=== PATIENT | female | born 1985 | race Caucasian/White ===

== ENCOUNTER → 2016-06-07 | Outpatient (CLI) | payer BC ==
[2016-06-07 11:06] LABS: ESTRADIOL 256.3 PG/ML
== END ==
LOC: M SMT 09:00
PROVIDERS: ATTEND Obstetrics & Gynecology Reproductive Endocrinology
DX: N97.9 Female infertility, unspecified (principal)

== ENCOUNTER → 2016-06-14 | Outpatient (CLI) | payer BC ==
[2016-06-14 10:55] LABS: PROGESTERONE 13.8 NG/ML
== END ==
LOC: M SMT 08:21
PROVIDERS: ATTEND Obstetrics & Gynecology Reproductive Endocrinology
DX: Z32.00 Encounter for pregnancy test, result unknown (principal)

== ENCOUNTER → 2016-07-05 | Outpatient (CLI) | payer BC ==
[2016-07-05 10:28] LABS: PROGESTERONE 29.6 NG/ML
== END ==
LOC: M SMT 08:40
PROVIDERS: ATTEND Obstetrics & Gynecology Reproductive Endocrinology
DX: N97.9 Female infertility, unspecified (principal)

== ENCOUNTER → 2016-07-12 | Outpatient (CLI) | payer BC ==
[2016-07-12 20:38] LABS: PROGESTERONE 3.7 NG/ML
== END ==
LOC: M SMT 08:53
PROVIDERS: ATTEND Obstetrics & Gynecology Reproductive Endocrinology
DX: Z32.00 Encounter for pregnancy test, result unknown (principal)

== ENCOUNTER → 2016-07-22 | Outpatient (CLI) | payer BC ==
[2016-07-22 10:09] LABS: ALBUMIN 4.1 GM/DL (3.2-5.2); ALBUMIN/GLOBULIN RATIO 1.24 (1.00-1.93); ALKALINE PHOSPHATASE 65 U/L (45-117); ALT/SGPT 28 U/L (12-78); ANION GAP 6 MEQ/L (8-16); AST/SGOT 13 U/L (15-37); BILIRUBIN,TOTAL 0.6 MG/DL (0.2-1.0); BLOOD UREA NITROGEN 16 MG/DL (7-18); CALCIUM LEVEL 8.9 MG/DL (8.5-10.1); CARBON DIOXIDE LEVEL 27 MEQ/L (21-32); CHLORIDE LEVEL 108 MEQ/L (98-107); CHOLESTEROL LEVEL 244 MG/DL (<200); CREATININE FOR GFR 0.75 MG/DL (0.55-1.02); GLOMERULAR FILTRATION RATE > 60.0 (>60); GLUCOSE, FASTING 96 MG/DL (70-105); POTASSIUM SERUM 4.9 MEQ/L (3.5-5.1); SODIUM LEVEL 141 MEQ/L (136-145); TOTAL PROTEIN 7.4 GM/DL (6.4-8.2); TRIGLYCERIDES LEVEL 86 MG/DL (<150)
== END ==
LOC: M SMT 08:16
PROVIDERS: ATTEND Nurse Practitioner Family
DX: I10 Essential (primary) hypertension (principal)

== ENCOUNTER → 2016-08-02 | Outpatient (CLI) | payer BC ==
[2016-08-02 13:35] LABS: PROGESTERONE 32.9 NG/ML
[2016-08-02 13:36] LABS: ESTRADIOL 129.2 PG/ML
== END ==
LOC: M SMT 11:04
PROVIDERS: ATTEND Obstetrics & Gynecology Reproductive Endocrinology
DX: N97.9 Female infertility, unspecified (principal)

== ENCOUNTER → 2016-08-09 | Outpatient (CLI) | payer BC ==
[2016-08-09 13:32] LABS: PROGESTERONE 9.7 NG/ML
[2016-08-09 13:39] LABS: HCG, SERUM QUANTITATIVE < 1.0 MIU/ML
== END ==
LOC: M SMT 11:24
PROVIDERS: ATTEND Obstetrics & Gynecology Reproductive Endocrinology
DX: Z32.00 Encounter for pregnancy test, result unknown (principal)

== ENCOUNTER → 2016-09-27 | Outpatient (CLI) | payer BC ==
[2016-09-27 16:42] LABS: ESTRADIOL 99.5 PG/ML; PROGESTERONE 21.5 NG/ML
== END ==
LOC: M SMT 13:03
PROVIDERS: ATTEND Obstetrics & Gynecology Reproductive Endocrinology
DX: N97.9 Female infertility, unspecified (principal)

== ENCOUNTER → 2016-10-04 | Outpatient (CLI) | payer BC ==
[2016-10-04 15:03] LABS: HCG, SERUM QUANTITATIVE < 1.0 MIU/ML
[2016-10-04 15:05] LABS: PROGESTERONE 1.1 NG/ML
== END ==
LOC: M SMT 09:14
PROVIDERS: ATTEND Obstetrics & Gynecology Reproductive Endocrinology
DX: Z32.00 Encounter for pregnancy test, result unknown (principal)

== ENCOUNTER → 2016-12-28 | Outpatient (CLI) | payer BC, SELFPAY | LOC: M LAB 17:26 | PROVIDERS: ATTEND Specialist | DX: O20.0 Threatened abortion (principal); Z3A.00 Weeks of gestation of pregnancy not specified ==

== ENCOUNTER → 2016-12-30 | Outpatient (CLI) | payer BC, SELFPAY | LOC: M LAB 16:37 | PROVIDERS: ATTEND Specialist | DX: O20.0 Threatened abortion (principal); Z3A.00 Weeks of gestation of pregnancy not specified ==

== ENCOUNTER → 2017-01-11 | Outpatient (CLI) | payer BC, SELFPAY ==
[2017-01-11 18:09] LABS: BASO # 0.1 10^3/uL (0.0-0.2); BASO % 0.8 % (0.0-1.0); EOS # 0.2 10^3/uL (0.0-0.50); IMMATURE GRANULOCYTE % 0.5 % (0-0); LYMPH % 19.5 % (24.0-44.0); MEAN CORPUSCULAR HEMOGLOBIN 29.2 pg (27.0-33.0); MEAN CORPUSCULAR HGB CONC 34.5 g/dl (32.0-36.5); MEAN CORPUSCULAR VOLUME 84.7 fl (80.0-96.0); MONO # 0.5 10^3/uL (0.0-0.8); NEUTROPHILS # 7.3 10^3/uL (1.8-7.7); NEUTROPHILS % 72.2 % (36.0-66.0); PLATELET COUNT, AUTOMATED 306 10^3/uL (150-450); RED CELL DISTRIBUTION WIDTH 11.9 % (11.5-14.5); WHITE BLOOD COUNT 10.1 10^3/uL (4.0-10.0)
[2017-01-11 18:19] LABS: ADD MORPHOLOGY? NO
[2017-01-13 09:48] LABS: HBsAg Prenatal NEGATIVE (NEGATIVE)
== END ==
LOC: M SMT 14:01
PROVIDERS: ATTEND Advanced Practice Midwife
DX: Z34.81 Encounter for supervision of other normal pregnancy, first trimester (principal)

== ENCOUNTER → 2017-04-12 | Outpatient (CLI) | payer BC | LOC: M RAD 15:39 | DX: Z34.81 Encounter for supervision of other normal pregnancy, first trimester (principal); Z3A.19 19 weeks gestation of pregnancy | CPT/HCPCS: 76811 ==

== ENCOUNTER → 2017-05-09 | Outpatient (CLI) | payer BC | LOC: M RAD 15:29 | DX: Z34.82 Encounter for supervision of other normal pregnancy, second trimester (principal) ==

== ENCOUNTER → 2017-06-08 | Outpatient (CLI) | payer BC ==
[2017-06-08 13:59] LABS: GLUCOSE CHALLENGE TEST 1 HOUR 116 MG/DL (LESS THAN 140)
[2017-06-08 14:03] LABS: HEMATOCRIT 34.5 % (36.0-47.0); HEMOGLOBIN 11.6 g/dl (12.0-16.0); MEAN CORPUSCULAR HEMOGLOBIN 29.4 pg (27.0-33.0); MEAN CORPUSCULAR HGB CONC 33.6 g/dl (32.0-36.5); MEAN CORPUSCULAR VOLUME 87.3 fl (80.0-96.0); PLATELET COUNT, AUTOMATED 261 10^3/uL (150-450); RED BLOOD COUNT 3.95 10^6/uL (4.00-5.40); RED CELL DISTRIBUTION WIDTH 13.6 % (11.5-14.5); WHITE BLOOD COUNT 13.9 10^3/uL (4.0-10.0)
== END ==
LOC: M SMT 08:51
DX: Z34.82 Encounter for supervision of other normal pregnancy, second trimester (principal)
CPT/HCPCS: 82950

== ENCOUNTER → 2017-07-06 | Outpatient (CLI) | payer BC | LOC: M RAD 15:20 | DX: Z36.9 Encounter for antenatal screening, unspecified (principal); O10.013 Pre-existing essential hypertension complicating pregnancy, third trimester; Z3A.31 31 weeks gestation of pregnancy | CPT/HCPCS: 76816 ==

== ENCOUNTER → 2017-08-08 | Outpatient (REF) | payer BC | LOC: M LAB REF 13:07 | DX: Z34.83 Encounter for supervision of other normal pregnancy, third trimester (principal) | CPT/HCPCS: 87081 ==

== ENCOUNTER → 2017-08-15 | Outpatient (CLI) | payer BC | LOC: M RAD 15:21 | DX: O10.013 Pre-existing essential hypertension complicating pregnancy, third trimester (principal); Z3A.37 37 weeks gestation of pregnancy | CPT/HCPCS: 76816 ==

== ENCOUNTER 2017-08-28 07:03 | Inpatient (IN) | payer BC ==
[2017-08-28] MEDS: miSOPROStol 50 MCG 1/2 TAB (S0191) PO (08:56)
[2017-08-28 08:59] LABS: HEMATOCRIT 33.7 % (36.0-47.0); HEMOGLOBIN 11.3 g/dl (12.0-15.5); MEAN CORPUSCULAR HEMOGLOBIN 26.7 pg (27.0-33.0); MEAN CORPUSCULAR HGB CONC 33.5 g/dl (32.0-36.5); MEAN CORPUSCULAR VOLUME 79.7 fl (80.0-96.0); PLATELET COUNT, AUTOMATED 207 10^3/uL (150-450); RED BLOOD COUNT 4.23 10^6/uL (4.00-5.40); WHITE BLOOD COUNT 13.2 10^3/uL (4.0-10.0)
[2017-08-28] MEDS ORDERED: OXYTOCIN 30 UNITS IN 0.9% NaCl 500ML IV BAG (J2590) As Ordered (13:51)
[2017-08-28] MEDS: LR 1,000 ML IV ×3 (14:25→22:01)
[2017-08-28] MEDS: OXYTOCIN DRIP 30 UNITS in APPROPRIATE DILUENT 1 EA IV (14:26)
[2017-08-28] MEDS: PROMETHAZINE INJ 25 MG/ML VIAL (J2550) IV (15:39)
[2017-08-28] MEDS: BUTORPHANOL 2 MG/ML INJ (J0595) IV (15:39)
[2017-08-28] MEDS ORDERED: FENTANYL 2MCG/ML ROPIVACAINE 0.2% IN 0.9% NACL 200ML IVBAG As Ordered (19:20)
[2017-08-28] MEDS ORDERED: diphenhydrAMINE INJ 50MG/ML VIAL (J1200) IV (20:55)
[2017-08-28] MEDS ORDERED: FENTANYL/ROPIVACAINE/NACL BAG 200 ML EPIDURAL (20:55)
[2017-08-28] MEDS ORDERED: ONDANSETRON 4MG/2ML VIAL (J2405) IV (20:55)
[2017-08-28] MEDS ORDERED: NALOXONE INJ 0.4 MG/1 ML VIAL (J2310) IV (20:55)
[2017-08-28] MEDS ORDERED: EPIDURAL COMMENT XX (20:55)
[2017-08-28] MEDS ORDERED: EPIDURAL/PCA KEYS XX (20:55)
[2017-08-28] MEDS ORDERED: LACTATED RINGER'S 1000 ML IV (20:55)
[2017-08-28] MEDS ORDERED: REFRIGERATOR IV KEYS XX (20:55)
[2017-08-28] MEDS ORDERED: ePHEDrine SULFATE 25 MG/5 ML(5MG/ML) SYRINGE As Ordered (21:11)
[2017-08-28] MEDS: ePHEDrine SULFATE 25 MG/5 ML(5MG/ML) SYRINGE IV ×2 (21:19→22:31)
[2017-08-29] MEDS ORDERED: BICITRA 30ML SOLN UDC As Ordered (07:15)
[2017-08-29] MEDS ORDERED: AZITHROMYCIN INJ 500MG VIAL (J0456) As Ordered (07:16)
[2017-08-29] MEDS ORDERED: ceFAZolin 2 GM/D5W 50 ML IV BAG (J0690 PER 500MG) As Ordered (07:17)
[2017-08-29] MEDS: BICITRA 30ML SOLN UDC PO (07:57)
[2017-08-29] MEDS: AZITHROMYCIN INJ 500 MG, VIAL MATE ADAPTER 1 EACH in D5W 250 ML IV (07:58)
[2017-08-29] MEDS ORDERED: LIDOCAINE PRES-FREE 2% 10ML AMP As Ordered ×2 (08:25)
[2017-08-29] MEDS ORDERED: MORPHINE PRES-FREE INJ 10 MG/10 ML VIAL (J2274) As Ordered (08:32)
[2017-08-29] MEDS ORDERED: OXYTOCIN INJ 10 UNITS/ML VIAL (J2590) As Ordered ×8 (08:53→09:45)
[2017-08-29] MEDS ORDERED: fentaNYL 100 MCG/2 ML INJECTION (J3010) As Ordered ×2 (09:11→09:24)
[2017-08-29] MEDS ORDERED: ONDANSETRON 4MG/2ML VIAL (J2405) As Ordered (09:24)
[2017-08-29] MEDS ORDERED: KETAMINE HCL 200 MG/20 ML VIAL As Ordered (09:28)
[2017-08-29] MEDS ORDERED: CHLOROPROCAINE 2 % INJ PRES.FREE 20 ML VIAL (J2400) As Ordered (09:29)
[2017-08-29] MEDS ORDERED: LABETALOL HCL 100 MG/20 ML VIAL As Ordered (09:30)
[2017-08-29] MEDS ORDERED: METHYLERGONOVINE MALEATE 0.2 MG/ML VIAL (J2210) As Ordered (09:32)
[2017-08-29] MEDS ORDERED: MIDAZOLAM INJ 2 MG/2 ML VIAL (J2250) As Ordered (09:35)
[2017-08-29 09:37] LABS: CORD GAS ABE V -5.1; CORD GAS HCO3 V 22.3 MEQ/L; CORD GAS O2 SAT V 42.6 %; CORD GAS PCO2 V 49.7 mmHg; CORD GAS PO2 V 22.2 mmHg; CORD GAS SBC V 18.9 MEQ/L; CORD GAS TCO2 V 23.8 MEQ/L
[2017-08-29] MEDS: METHYLERGONOVINE MALEATE 0.2 MG/ML VIAL (J2210) IM ×2 (09:42→09:46)
[2017-08-29] MEDS ORDERED: MEASLES,MUMPS,RUBELLA VACCINE INJ (MMR-II) (90707) SC (10:30)
[2017-08-29] MEDS ORDERED: ONDANSETRON 4MG/2ML VIAL (J2405) IV ×3 (10:30→12:30)
[2017-08-29] MEDS ORDERED: PERCOCET 5MG/325MG TAB PO ×2 (10:30→12:00)
[2017-08-29] MEDS ORDERED: RHOGAM 300 MCG (1500 IU) INJ (J2790) IM (10:30)
[2017-08-29] MEDS ORDERED: PROMETHAZINE 25 MG TAB PO (10:30)
[2017-08-29] MEDS: LR 1,000 ML IV ×3 (12:00→22:07)
[2017-08-29] MEDS ORDERED: fentaNYL 100 MCG/2 ML INJECTION (J3010) IV (12:00)
[2017-08-29] MEDS ORDERED: NALOXONE INJ 0.4 MG/1 ML VIAL (J2310) IV ×2 (12:30)
[2017-08-29] MEDS ORDERED: METOCLOPRAMIDE INJ 10MG/2ML VIAL (J2765) IV (12:30)
[2017-08-29] MEDS ORDERED: NALBUPHINE HCL 10 MG/ML AMP (J2300) IV (12:30)
[2017-08-29] MEDS ORDERED: KETOROLAC 30 MG/ML VIAL (J1885) As Ordered (13:59)
[2017-08-29] MEDS: KETOROLAC 30 MG/ML VIAL (J1885) IV ×2 (14:19→19:19)
[2017-08-29] MEDS: CETIRIZINE (ZyrTEC) 10 MG TAB PO (14:24)
[2017-08-29] MEDS: METHYLDOPA 250 MG TAB PO ×2 (14:28→21:13)
[2017-08-29] MEDS: buPROPion **SR TABLET** (ZYBAN) 150MG PO ×2 (14:28→21:12)
[2017-08-29] MEDS: DOCUSATE SODIUM 100 MG CAP PO (21:12)
[2017-08-30] MEDS: KETOROLAC 30 MG/ML VIAL (J1885) IV ×2 (01:23→06:40)
[2017-08-30] MEDS: LR 1,000 ML IV (02:21)
[2017-08-30 07:03] LABS: HEMATOCRIT 26.2 % (36.0-47.0); MEAN CORPUSCULAR HEMOGLOBIN 26.6 pg (27.0-33.0); MEAN CORPUSCULAR HGB CONC 32.8 g/dl (32.0-36.5); MEAN CORPUSCULAR VOLUME 81.1 fl (80.0-96.0); PLATELET COUNT, AUTOMATED 207 10^3/uL (150-450); RED BLOOD COUNT 3.23 10^6/uL (4.00-5.40); RED CELL DISTRIBUTION WIDTH 14.3 % (11.5-14.5); WHITE BLOOD COUNT 22.3 10^3/uL (4.0-10.0)
[2017-08-30 07:09] LABS: HEMOGLOBIN 8.6 g/dl (12.0-15.5)
[2017-08-30] MEDS: buPROPion **SR TABLET** (ZYBAN) 150MG PO ×2 (08:53→20:08)
[2017-08-30] MEDS: PERCOCET 5MG/325MG TAB PO ×3 (08:53→18:17)
[2017-08-30] MEDS: DOCUSATE SODIUM 100 MG CAP PO ×2 (08:54→20:09)
[2017-08-30] MEDS: PRENATAL VITAMINS CHEWABLE TABLET PO (08:54)
[2017-08-30] MEDS: METHYLDOPA 250 MG TAB PO ×2 (08:54→20:09)
[2017-08-30] MEDS: CETIRIZINE (ZyrTEC) 10 MG TAB PO (08:55)
[2017-08-30] MEDS ORDERED: PRENATAL VITAMINS CHEWABLE TABLET PO (09:00)
[2017-08-30] MEDS: IBUPROFEN 800 MG TAB PO ×2 (15:40→22:55)
[2017-08-31] MEDS: PERCOCET 5MG/325MG TAB PO ×2 (04:44→09:27)
[2017-08-31] MEDS: IBUPROFEN 800 MG TAB PO (06:06)
[2017-08-31] MEDS: PRENATAL VITAMINS CHEWABLE TABLET PO (09:11)
[2017-08-31] MEDS: DOCUSATE SODIUM 100 MG CAP PO (09:12)
[2017-08-31] MEDS: CETIRIZINE (ZyrTEC) 10 MG TAB PO (09:12)
[2017-08-31] MEDS: METHYLDOPA 250 MG TAB PO (09:12)
[2017-08-31] MEDS: buPROPion **SR TABLET** (ZYBAN) 150MG PO (09:14)
== END 2017-08-31 13:40 | disposition home or self-care (01) | DRG 540 ==
LOC: M LDI 07:03 → M OBS 08-30 00:45
PROVIDERS: Obstetrics & Gynecology
PROC: 10D00Z1 Extraction of Products of Conception, Low, Open Approach (ICD-10-PCS; principal; 2017-08-29 08:38)
DX: O42.02 Full-term premature rupture of membranes, onset of labor within 24 hours of rupture (principal); O10.02 Pre-existing essential hypertension complicating childbirth; Z37.0 Single live birth; Z3A.38 38 weeks gestation of pregnancy; O62.0 Primary inadequate contractions

== ENCOUNTER → 2019-01-15 | Outpatient (REF) | payer BC ==
[~2019-01-15] MED LIST: ACID1TAB10 PO; BUPR10TASR PO; DOCQ100C5 PO; IBUP80TA PO; METHY25TA PO; OXYC1TAB23 PO; PRENTAB9 PO; ZYRT10CA PO
== END ==
LOC: M LABDRAW1 17:19
PROVIDERS: ATTEND Obstetrics & Gynecology
DX: O20.0 Threatened abortion (principal)

== ENCOUNTER → 2019-01-17 | Outpatient (CLI) | payer BC | LOC: M SMT 15:19 | PROVIDERS: ATTEND Obstetrics & Gynecology | DX: O20.0 Threatened abortion (principal) ==

== ENCOUNTER → 2019-02-26 | Outpatient (CLI) | payer BC ==
[2019-02-26 17:57] LABS: BASO % 0.3 % (0.0-1.0); EOS # 0.1 10^3/uL (0.0-0.5); EOS % 0.8 % (0.0-3.0); HEMATOCRIT 41.4 % (36.0-47.0); HEMOGLOBIN 14.1 g/dl (12.0-15.5); LYMPH # 1.4 10^3/uL (1.5-5.0); LYMPH % 11.6 % (24.0-44.0); MEAN CORPUSCULAR HEMOGLOBIN 28.9 pg (27.0-33.0); MEAN CORPUSCULAR HGB CONC 34.1 g/dl (32.0-36.5); MEAN CORPUSCULAR VOLUME 84.8 fl (80.0-96.0); MONO # 0.4 10^3/uL (0.0-0.8); MONO % 3.2 % (0.0-5.0); NEUTROPHILS % 83.7 % (36.0-66.0); PLATELET COUNT, AUTOMATED 285 10^3/uL (150-450); RED BLOOD COUNT 4.88 10^6/uL (4.00-5.40)
[2019-02-26 18:04] LABS: ALT/SGPT 18 U/L (12-78); BILIRUBIN,TOTAL 0.3 MG/DL (0.2-1.0); GLOMERULAR FILTRATION RATE > 60.0 (>60); LDH LACTATE DEHYDROGENASE 171 U/L (84-246); URIC ACID 3.5 MG/DL (2.6-6.0)
[2019-02-26 18:17] LABS: CREATININE,RANDOM URINE 98.3 MG/DL; TOTAL PROTEIN,RANDOM URINE 11.5 MG/DL (0.0-12.0)
[2019-02-26 19:23] LABS: CHLAMYDIA DNA AMPLIFICATION NEGATIVE (NEGATIVE); GC DNA AMPLIFICATION NEGATIVE (NEGATIVE)
[2019-02-27 09:32] LABS: RUBELLA IgG QUALITATIVE IMMUNE (IMMUNE)
[2019-02-27 10:01] LABS: HIV 1&2 SCREEN CENTAUR NEGATIVE (NEGATIVE)
== END ==
LOC: M SMT 15:13
PROVIDERS: ATTEND Advanced Practice Midwife
DX: O09.511 Supervision of elderly primigravida, first trimester (principal); Z3A.09 9 weeks gestation of pregnancy; Z36.89 Encounter for other specified antenatal screening

== ENCOUNTER → 2019-03-12 | Outpatient (REF) | payer BC ==
[2019-03-20 16:09] LABS: HPV HYBRID CAPTURE II Negative (Negative)
== END ==
LOC: M SFHCWAGY 09:48
PROVIDERS: ATTEND Advanced Practice Midwife
DX: Z34.80 Encounter for supervision of other normal pregnancy, unspecified trimester (principal)
CPT/HCPCS: 87086; 87624; G0123

== ENCOUNTER → 2019-04-25 | Outpatient (CLI) | payer BC ==
--- NOTE | 2019-04-26 02:14 | REP ---
Clinical: Anatomical evaluation. Comparison: None . Findings: Examination demonstrates a single live intrauterine in breech presentation. motion is identified by technologist. Placenta is noted posterior and low-lying and grade zero without evidence for placenta previa or abruption. Amniotic fluid volume is normal. Cervix measures 4.3 cm in length and appears closed. No evidence for nuchal cord. Gestational age by current measurements 18 weeks 6 days with JUAN 09/20/2019 . FHR equals 142 beats per minute. BPD 4.4 cm 19.3 weeks HC 15.7 cm 18.6 weeks AC 13.6 cm 19.0 weeks FL 2.9 cm 18.9 weeks HL 2.9 cm 19.4 weeks HC/AC ratio 1.15 Estimated weight 266 grams ( 52 percentile). Anatomical assessment demonstrates normal structures including cranium, choroid plexus, cavum, cerebellum/posterior fossa, facial features, four-chamber heart/ventricular outflow tracts, diaphragm, stomach, cord insertion/three-vessel cord, kidneys/bladder, spine, and extremities. Impression: 1. Single live intrauterine in breech presentation demonstrating appropriate interval growth. 2. Low-lying posterior placenta 10 mm from the closed internal os . 3. Limited evaluation of the lungs. Remainder of the anatomical assessment is complete and normal.
== END ==
LOC: M WHC 14:44
PROVIDERS: ATTEND Advanced Practice Midwife
DX: O09.522 Supervision of elderly multigravida, second trimester (principal); Z3A.18 18 weeks gestation of pregnancy; O32.1XX0 Maternal care for breech presentation, not applicable or unspecified

== ENCOUNTER → 2019-06-03 | Outpatient (CLI) | payer BC ==
--- NOTE | 2019-06-03 09:33 | REP ---
Clinical: Anatomical evaluation. Comparison: 04/25/2019 . Findings: Examination demonstrates a single live intrauterine in variable presentation. motion is identified by technologist. Placenta is noted posterior and grade I without evidence for placenta previa or abruption. Placenta tip now measures 4.1 cm from the closed internal os. Amniotic fluid volume is normal. Cervix measures 4.1 cm in length and appears closed. No evidence for nuchal cord. Gestational age by LMP 24 weeks 3 days with JUAN 09/20/2019 . Gestational age by current measurements 24 weeks 3 days with JUAN 09/20/2019 . FHR equals 156 beats per minute. Estimated weight 776 grams ( 66 percentile). Anatomical assessment demonstrates normal structures without abnormality. Impression: 1. Single live intrauterine in variable presentation demonstrating appropriate interval growth. No gross abnormalities are identified. 2. Posterior grade 1 placenta with tip 4.1 cm from the closed internal os.
== END ==
LOC: M WHC 08:31
PROVIDERS: ATTEND Advanced Practice Midwife
DX: O34.211 Maternal care for low transverse scar from previous cesarean delivery (principal); Z3A.24 24 weeks gestation of pregnancy

== ENCOUNTER → 2019-06-25 | Outpatient (REF) | payer BC ==
[2019-06-25 11:53] LABS: HEMATOCRIT 36.6 % (36.0-47.0); HEMOGLOBIN 12.2 g/dl (12.0-15.5); MEAN CORPUSCULAR HEMOGLOBIN 29.4 pg (27.0-33.0); MEAN CORPUSCULAR HGB CONC 33.3 g/dl (32.0-36.5); MEAN CORPUSCULAR VOLUME 88.2 fl (80.0-96.0); PLATELET COUNT, AUTOMATED 237 10^3/uL (150-450); RED BLOOD COUNT 4.15 10^6/uL (4.00-5.40); WHITE BLOOD COUNT 11.2 10^3/uL (4.0-10.0)
== END ==
LOC: M PLALAB 08:08
PROVIDERS: ATTEND Advanced Practice Midwife
DX: O34.211 Maternal care for low transverse scar from previous cesarean delivery (principal)

== ENCOUNTER → 2019-07-04 | Outpatient (CLI) | payer BC | LOC: M LAB 08:01 | PROVIDERS: ATTEND Advanced Practice Midwife | DX: O09.523 Supervision of elderly multigravida, third trimester (principal) ==

== ENCOUNTER → 2019-08-15 | Outpatient (REF) | payer BC ==
[2019-08-15 18:12] LABS: HEMATOCRIT 36.4 % (36.0-47.0); HEMOGLOBIN 11.6 g/dl (12.0-15.5); MEAN CORPUSCULAR HEMOGLOBIN 27.4 pg (27.0-33.0); MEAN CORPUSCULAR HGB CONC 31.9 g/dl (32.0-36.5); MEAN CORPUSCULAR VOLUME 85.8 fl (80.0-96.0); PLATELET COUNT, AUTOMATED 210 10^3/uL (150-450); RED BLOOD COUNT 4.24 10^6/uL (4.00-5.40); WHITE BLOOD COUNT 11.6 10^3/uL (4.0-10.0)
[2019-08-15 18:15] LABS: ALT/SGPT 20 U/L (12-78); BILIRUBIN,TOTAL 0.3 MG/DL (0.2-1.0); CREATININE FOR GFR 0.58 MG/DL (0.55-1.30); GLOMERULAR FILTRATION RATE > 60.0 (>60); LDH LACTATE DEHYDROGENASE 193 U/L (84-246); URIC ACID 4.5 MG/DL (2.6-6.0)
[2019-08-15 18:39] LABS: CREATININE,RANDOM URINE 26.5 MG/DL; TOTAL PROTEIN,RANDOM URINE 11.6 MG/DL (0.0-12.0)
[2019-08-16 09:34] LABS: HIV 1&2 SCREEN CENTAUR NEGATIVE (NEGATIVE)
== END ==
LOC: M PLALAB 14:37
PROVIDERS: ATTEND Advanced Practice Midwife
DX: O16.3 Unspecified maternal hypertension, third trimester (principal); O34.211 Maternal care for low transverse scar from previous cesarean delivery; Z3A.00 Weeks of gestation of pregnancy not specified

== ENCOUNTER 2019-08-26 11:44 | Inpatient (IN) | payer BC ==
[~2019-08-26] VITALS: Ht 152.4 cm; Wt 65.9 kg
[2019-08-26] VITALS (29 sets, daily range): BP systolic 108–157; BP diastolic 56–92
[2019-08-26] MEDS ORDERED: BUPR50TA PO (12:07)
[2019-08-26] MEDS ORDERED: ASPI81CH33 PO (12:07)
--- NOTE | 2019-08-26 12:32 | HPEPDOC ---
Obstetrical History & Physical General Date of Admission August 26, 2019 at 11:44 Primary Care Physician: CAITLIN PEREZ CNM History of Present Illness Patient is a 33-year-old female who is a at 37.1 weeks gestation with an JUAN of 09/15/19 based off of her LMP and consistent with her first trimester ultrasound. She initiated care in her first trimester at [facility]. Her has been complicated by advanced maternal age, CHTN-which she is not taking any medications for, preeclampsia diagnosed at 35 weeks gestation, a prior section and depression. She desires a TOLAC. She presents for an IOL due to preeclampsia. Chief Complaint: Other (Preeclampsia and prior section) Information Provided By: Patient Age: 33 : 4 Term: 1 Pre-term: 0 Abortions: 2 Livin Care Care: Good Care Dating Final EDC: September 15, 2019 Final EDC by: LMP EGA at Admission: 37.1 Antepartum Course Diagnos(e)s Preeclampsia AMA Previous section-desires TOLAC Height (inches): 60 Pre- weight (lbs.): 110 Admission Weight (lbs.): 145 Change in Weight (lbs.): 35 Past Medical History Past Obstetrical History : Gestation: 39 Type of Delivery: Ceserean section (August 2017) Sex of : Female (weight: 6 lbs 9 oz) Complications: Yes (failure to progress) Past Medical History Medical History Chronic hypertension: no medications since after last delivery Surgical History: section, [place] teeth Family History Significant Family History: Diabetes, Hypertension, Other (Glaucoma) Social History Social history social science instructor Marital Status: Family situation: Spouse/partner home Psychosocial History: No pertinent psych hx * Smoker: non-smoker Alcohol: Denies Abuse Violence Screening Have you been hit/kicked/slapp: No Have you been sexually assault: No Allergies Coded Allergies: No Known Allergies (Unverified , 08/28/17) Medications Scheduled Aspirin (Aspirin) 81 Mg Tab.chew, 81 MG PO DAILY for pain Bupropion HCl (Bupropion HCl) 100 Mg Tablet, 100 MG PO BID Bupropion HCl (Bupropion HCl) 100 Mg Tablet, 50 MG PO BID Cetirizine HCl (Zyrtec Allergy) 10 Mg Cap, 10 MG PO DAILY No.137/Iron/Folic Acd ( Vitamin Tablet) 1 Tab Tab, 1 TAB PO DAILY Physical Examination Physical Examination GENERAL: Alert and oriented times three. BREAST: . ABDOMEN: Gravid and non-tender to touch. FETUS: Is vertex (VTX) by sterile vaginal examination (SVE), fetus is vertex (VTX) by Genaro. HEART RATE: Regular rate and rhythm. LUNGS: Clear to auscultation (CTA). EXTREMITIES: No edema. No clonus. Deep tendon reflexes (DTRs) + 2. Laboratory Data 24H LABS Laboratory Tests 2 08/26/19 12:07: Serology Scanned Report Hepatitis B Testing CBC/BMP Item Value Date Time White Blood Count 11.3 10^3/uL H 08/26/19 1240 Red Blood Count 4.07 10^6/uL 08/26/19 1240 Hemoglobin 11.5 g/dl L 08/26/19 1240 Hematocrit 33.8 % L 08/26/19 1240 Mean Corpuscular Volume 83.0 fl 08/26/19 1240 Mean Corpuscular Hemoglobin 28.3 pg 08/26/19 1240 Mean Corpuscular Hemoglobin Concent 34.0 g/dl 08/26/19 1240 Red Cell Distribution Width 14.3 % 08/26/19 1240 Platelet Count 202 10^3/uL 08/26/19 1240 Item Value Date Time Creatinine 0.61 MG/DL 08/26/19 1247 Glomerular Filtration Rate > 60.0 08/26/19 1247 Uric Acid 4.8 MG/DL 08/26/19 1247 Total Bilirubin 0.3 MG/DL 08/26/19 1247 Aspartate Amino Transf (AST/SGOT) 21 U/L 08/26/19 1247 Alanine Aminotransferase (ALT/SGPT) 24 U/L 08/26/19 1247 Lactate Dehydrogenase 243 U/L 08/26/19 1247 Urine Culture: Other (Klebsiella) Pertinent Laboratoy Data Blood Type: A+ RBC Antibody Screen: Negative HIV: Negative Hepatitis B: Negative Hepatitis C: Negative Rapid Plasma Reagin: Nonreactive Rubella: Immune Chlamydia/Gonorrhea: Negative Group B Streptococcus: Negative Glucose Tolerance Test: 137 Diag/Inter Therapy 3 hr GTT: 82, 144, 134, 95 Vaginal Examination Dilation: 1cm Effacement: 50% Station: -3 Cervical Consistency: Medium Cervical Position: Middle Presentation: Cephalic presentation Position: Vertex (occiput) Assessment Heart Rate (FHR): 150 Variability: Moderate Accelerations: Positive Decelerations: None Tocometer Contractions: Yes Frequency: irregular Multi-drug resistant Organism: No history of MDRO Assessment/Plan Assessment IUP at 37.1 weeks gestation AMA preeclampsia TOLAC Category I FHR tracing GBS negative Plan Admit to L&D. Patient has been counseled on TOLAC. Risks, benefits, and alternatives reviewed. Patient desires to proceed with IOL. Reviewed/counseled on induction of labor. Plan of care collaborated with Dr. López. OOB ad zack. Continuous monitoring. Diet: regular for lunch then switch to clears with the start of IV Pitocin. Group B Streptococcus (GBS) negative. Labs and intravenous (IV) per unit protocol. Counseled on Pitocin, arnett bulb and induction of labor (IOL). Lactated Ringers (LR): 125 mL/hr with IV Pitocin. Anesthesia consult per patient's request. Anesthesia has been notified that patient is in department. Anticipate cervical ripening. C-S as appropriate. CAITLIN PEREZ CNM August 26, 2019 12:32
[2019-08-26] MEDS ORDERED: OXYTOCIN DRIP 30 UNITS in IV 1 EA IV SCH (12:45)
[2019-08-26 13:09] LABS: HEMATOCRIT 33.8 % (36.0-47.0); HEMOGLOBIN 11.5 g/dl (12.0-15.5); MEAN CORPUSCULAR HEMOGLOBIN 28.3 pg (27.0-33.0); PLATELET COUNT, AUTOMATED 202 10^3/uL (150-450); RED BLOOD COUNT 4.07 10^6/uL (4.00-5.40); WHITE BLOOD COUNT 11.3 10^3/uL (4.0-10.0)
[2019-08-26 13:36] LABS: ALT/SGPT 24 U/L (12-78); BILIRUBIN,TOTAL 0.3 MG/DL (0.2-1.0); CREATININE FOR GFR 0.61 MG/DL (0.55-1.30); GLOMERULAR FILTRATION RATE > 60.0 (>60); LDH LACTATE DEHYDROGENASE 243 U/L (84-246); URIC ACID 4.8 MG/DL (2.6-6.0)
[2019-08-26] MEDS: LR 1,000 ML IV SCH ×2 (13:38→20:06)
[2019-08-26] MEDS ORDERED: FENTANYL 2MCG/ML ROPIVACAINE 0.2% IN 0.9% NACL 100ML IVBAG As Ordered ONE (19:59)
--- NOTE | 2019-08-26 20:19 | IPNPDOC ---
Obstetrical Progress Note Date of Service August 26, 2019 Subjective Patient desires an epidural. Offered IV pain medication but declined. She reports relaxation between contractions. Objective Vital Signs Date Time Temp Pulse Resp B/P (MAP) Pulse Ox O2 Delivery O2 Flow Rate FiO2 08/26/19 19:11 97.8 109 130/88 (102) 18 Assessment Heart Rate (FHR): 150 Variability: Moderate Accelerations: Positive Decelerations: None Heart Rate Tracing: Category I Tocometer Contractions: Yes Frequency: regular, other (every 2 to 3 minutes) Strength: palpated as moderate Assessment and Plan Age: 33 EGA at Admission: 37.1 Status: Reassuring Group B Streptococcus: Negative Additional Comments Prince bulb still in place. Will check for position and if still in uterus or in the vagina after she is comfortable with her epidural. IV Pitocin is at 8 mu/min. CAITLIN PEREZ CNM August 26, 2019 20:19
[2019-08-26] MEDS ORDERED: LACTATED RINGER'S 1000 ML IV PRN (20:35)
[2019-08-26] MEDS ORDERED: ONDANSETRON 4MG/2ML VIAL IV PRN (20:35)
[2019-08-26] MEDS ORDERED: EPIDURAL/PCA KEYS XX PRN (20:35)
[2019-08-26] MEDS ORDERED: diphenhydrAMINE 50MG/ML VIAL (J1200) IV PRN (20:35)
[2019-08-26] MEDS ORDERED: EPIDURAL COMMENT XX SCH (20:35)
[2019-08-26] MEDS ORDERED: REFRIGERATOR IV KEYS XX PRN (20:35)
[2019-08-26] MEDS ORDERED: FENTANYL/ROPIVACAINE/NACL BAG 100 ML EPIDURAL SCH (20:35)
[2019-08-26] MEDS ORDERED: NALOXONE INJ 0.4MG/1ML VIAL (J2310 PER 1MG) IV PRN (20:35)
[2019-08-27] VITALS (67 sets, daily range): BP systolic 90–155; BP diastolic 50–91
[2019-08-27] MEDS: ePHEDrine SULFATE 25 MG/5 ML(5MG/ML) SYRINGE IV PRN ×2 (00:58→02:35)
[2019-08-27] MEDS ORDERED: ePHEDrine SULFATE 25 MG/5 ML(5MG/ML) SYRINGE As Ordered ONE (01:00)
--- NOTE | 2019-08-27 05:44 | IPNPDOC ---
Obstetrical Progress Note Date of Service August 27, 2019 Subjective Patient reports she is comfortable. Objective Vital Signs Date Time Temp Pulse Resp B/P (MAP) Pulse Ox O2 Delivery O2 Flow Rate FiO2 08/27/19 01:09 117 104/51 (68) 08/26/19 22:24 97.6 08/26/19 21:38 17 08/26/19 19:11 18 Assessment Heart Rate (FHR): 140 Variability: Moderate Accelerations: Positive Decelerations: None Heart Rate Tracing: Category I Tocometer Contractions: Yes Frequency: regular Sterile Vaginal Examination Dilation: 3 cm Effacement (%): 90% Station: -2 Cervical Consistency: Soft Cervical Position: Anterior Postion/Presentation: Cephalic presentation Assessment and Plan EGA at Admission: 37.1 Weeks & Days 37.2 today Status: Reassuring Group B Streptococcus: Negative Additional Comments IV Pitocin at 14 mu/min. Foely catheter removed. Moderate amount of bloody show noted. Will consider AROM in a few hours. CAITLIN PEREZ CNM August 27, 2019 05:44
[2019-08-27] MEDS ORDERED: FENTANYL 2MCG/ML ROPIVACAINE 0.2% IN 0.9% NACL 100ML IVBAG As Ordered ONE (09:11)
[2019-08-27] MEDS ORDERED: buPROPion **SR TABLET** (ZYBAN) 150MG PO SCH (11:00)
[2019-08-27] MEDS: LR 1,000 ML IV SCH (11:29)
[2019-08-27] MEDS ORDERED: ceFAZolin 2 GM/D5W 50 ML IV BAG (J0690 PER 500MG) As Ordered ONE (13:17)
[2019-08-27] MEDS ORDERED: BICITRA 30ML SOLN UDC PO ONE (14:00)
[2019-08-27] MEDS ORDERED: AZITHROMYCIN INJ 500 MG, VIAL MATE ADAPTER 1 EACH in D5W 250 ML IV ONE (14:00)
[2019-08-27] MEDS ORDERED: ceFAZolin SOD 2 GM in IV 1 EA IV ONE (14:00)
[2019-08-27] MEDS ORDERED: OXYTOCIN INJ 10 UNITS/ML VIAL (J2590) As Ordered ONE ×4 (14:11→15:26)
[2019-08-27] MEDS ORDERED: ONDANSETRON 4MG/2ML VIAL As Ordered ONE (14:11)
[2019-08-27] MEDS ORDERED: LIDOCAINE PRES-FREE 2% 10ML AMP As Ordered ONE (14:11)
[2019-08-27] MEDS ORDERED: MORPHINE PRES-FREE INJ 10 MG/10 ML VIAL (J2274) As Ordered ONE (14:11)
[2019-08-27] MEDS ORDERED: METOCLOPRAMIDE INJ 10MG/2ML VIAL (J2765 PER 1) IV PRN ×2 (14:27→16:45)
[2019-08-27] MEDS ORDERED: diphenhydrAMINE 50MG/ML VIAL (J1200) IV PRN (14:27)
[2019-08-27] MEDS ORDERED: ONDANSETRON 4MG/2ML VIAL IV PRN ×3 (14:27→16:45)
[2019-08-27] MEDS ORDERED: NALOXONE INJ 0.4MG/1ML VIAL (J2310 PER 1MG) IV PRN ×2 (14:27)
[2019-08-27] MEDS ORDERED: NALBUPHINE HCL 10 MG/ML AMP (J2300) IV PRN (14:27)
[2019-08-27] MEDS ORDERED: dexameTHASONE 4 MG/ML 1ML VIAL (J1100 PER 1MG) As Ordered ONE (14:29)
[2019-08-27] MEDS ORDERED: KETOROLAC 60 MG/2 ML VIAL As Ordered ONE (14:38)
[2019-08-27] MEDS ORDERED: propofoL 200 MG/20 ML VIAL As Ordered ONE ×4 (14:40→15:25)
[2019-08-27] MEDS ORDERED: OXYTOCIN 30 UNITS IN 0.9% NaCl 500ML IV BAG (J2590) As Ordered ONE ×2 (15:30→16:56)
[2019-08-27] MEDS ORDERED: KETAMINE HCL 200 MG/20 ML VIAL As Ordered ONE (15:36)
[2019-08-27] MEDS ORDERED: OXYTOCIN DRIP 30 UNITS in IV 1 EA IV SCH ×2 (16:04→16:30)
[2019-08-27] MEDS ORDERED: METHYLERGONOVINE MALEATE 0.2 MG/ML VIAL (J2210) IM ONE (16:15)
[2019-08-27] MEDS ORDERED: ONDANSETRON 4 MG ORAL DISINTEGRATING TAB PO PRN (16:15)
[2019-08-27] MEDS ORDERED: ACETAMINOPHEN TAB 650MG DOSE (2X325MG) PO PRN (16:15)
[2019-08-27] MEDS ORDERED: RHOGAM 300 MCG (1500 IU) INJ (J2790) IM SCH (16:15)
[2019-08-27] MEDS ORDERED: MEASLES,MUMPS,RUBELLA VACCINE INJ (MMR-II) (90707) SC SCH (16:15)
[2019-08-27] MEDS ORDERED: CARBOPROST TROMETHAMINE 250 MCG/ML AMP IM ONE (16:15)
[2019-08-27] MEDS ORDERED: ACETAMINOPHEN 500 MG TAB PO PRN (16:15)
[2019-08-27] MEDS ORDERED: PERCOCET 5MG/325MG TAB PO PRN (16:45)
[2019-08-27] MEDS ORDERED: fentaNYL 100 MCG/2 ML INJECTION (J3010) IV PRN (16:45)
[2019-08-27] MEDS ORDERED: LR 1,000 ML IV SCH (16:45)
[2019-08-27] MEDS: KETOROLAC 30 MG/ML 1ML VIAL IV SCH ×2 (18:04→23:31)
[2019-08-27 19:53] LABS: HEMATOCRIT 41.2 % (36.0-47.0); HEMOGLOBIN 13.5 g/dl (12.0-15.5); MEAN CORPUSCULAR HEMOGLOBIN 27.9 pg (27.0-33.0); MEAN CORPUSCULAR HGB CONC 32.8 g/dl (32.0-36.5); MEAN CORPUSCULAR VOLUME 85.1 fl (80.0-96.0); PLATELET COUNT, AUTOMATED 198 10^3/uL (150-450); RED BLOOD COUNT 4.84 10^6/uL (4.00-5.40)
[2019-08-27 19:56] LABS: WHITE BLOOD COUNT 30.6 10^3/uL (4.0-10.0)
[2019-08-27] MEDS ORDERED: METHYLERGONOVINE MALEATE 0.2 MG TAB PO PRN (20:00)
[2019-08-27] MEDS: buPROPion **SR TABLET** (ZYBAN) 150MG PO SCH (20:18)
[2019-08-28 02:27] VITALS: BP 114/60
[2019-08-28] MEDS: KETOROLAC 30 MG/ML 1ML VIAL IV SCH ×2 (05:19→11:54)
[2019-08-28 06:27] VITALS: BP 113/55
[2019-08-28 06:47] LABS: HEMATOCRIT 32.3 % (36.0-47.0); MEAN CORPUSCULAR HEMOGLOBIN 28.5 pg (27.0-33.0); MEAN CORPUSCULAR HGB CONC 34.1 g/dl (32.0-36.5); MEAN CORPUSCULAR VOLUME 83.7 fl (80.0-96.0); PLATELET COUNT, AUTOMATED 178 10^3/uL (150-450); RED BLOOD COUNT 3.86 10^6/uL (4.00-5.40); WHITE BLOOD COUNT 22.9 10^3/uL (4.0-10.0)
[2019-08-28] MEDS ORDERED: PERCOCET PO (07:21)
[2019-08-28] MEDS ORDERED: IBUP80TA PO (07:21)
[2019-08-28] MEDS ORDERED: DOCUSATE SODIUM 100 MG CAP PO PRN (07:30)
[2019-08-28 10:01] VITALS: BP 126/67
[2019-08-28 14:00] VITALS: BP 107/58
[2019-08-28] MEDS: PRENATAL VITAMINS CHEWABLE TABLET PO SCH (14:25)
[2019-08-28] MEDS: buPROPion **SR TABLET** (ZYBAN) 150MG PO SCH ×2 (14:25→21:15)
[2019-08-28] MEDS: PERCOCET 5MG/325MG TAB PO PRN ×2 (17:06→21:16)
[2019-08-28 18:10] VITALS: BP 126/74
[2019-08-28] MEDS: IBUPROFEN 800 MG TAB PO SCH (18:13)
[2019-08-28 22:00] VITALS: BP 126/77
[2019-08-29 02:00] VITALS: BP 109/66
[2019-08-29] MEDS: IBUPROFEN 800 MG TAB PO SCH ×2 (03:15→11:55)
--- NOTE | 2019-08-29 05:25 | DS.PDOC ---
Discharge Summary General Date of Admission August 26, 2019 at 11:44 Date of Discharge 08/29/2019 Attending Physician: JEANNIE ASHLEY DO Discharge Summary PROCEDURES PERFORMED DURING STAY: 1. Epidural. 2. Repeat section. 3. Blood transfusion. ADMITTING DIAGNOSES: 1. Induction 2. Trial labor after section. DISCHARGE DIAGNOSES: 1.. Unsuccessful trial labor after section. 2. Arrest of dilation. 3. Repeat section. 4. hemorrhage. COMPLICATIONS/CHIEF COMPLAINT: Induction. HISTORY OF PRESENT ILLNESS/HOSPITAL COURSE: : This patient presented for induction of labor. She progressed to 4 cm, at which time she was diagnosed with arrest of dilation with unsuccessful trial labor. She underwent a section which was complicated with a hemorrhage.. She received 2 units of packed red blood cells. Her postoperative day #1 hematocrit was 32.3, hemoglobin 11.0. . She did well postoperatively. By postoperative day #2, had met all discharge criteria and was discharged home in stable condition DISCHARGE MEDICATIONS: Please see below. ALLERGIES: Please see below. PHYSICAL EXAMINATION ON DISCHARGE: VITAL SIGNS: Please see below. GENERAL: Well-appearing ABDOMINAL EXAMINATION: Soft, appropriately tender. Her incision was dressed and clean EXTREMITIES: Negative calf tenderness NEUROLOGICAL EXAMINATION: Grossly intact LABORATORY DATA: Please see below. ACTIVITY: As tolerated. DIET: Regular DISCHARGE PLAN: Follow up in 2 weeks. DISPOSITION: home. DISCHARGE INSTRUCTIONS: 1. Remain on pelvic rest for 6 weeks. 2. Reports severe pain, heavy vaginal bleeding, fever, 3. Follow up for 2 week incision check. DISCHARGE CONDITION: Stable. TIME SPENT ON DISCHARGE: Greater than 15 minutes. Vital Signs/I&Os Vital Signs Date Time Temp Pulse Resp B/P (MAP) Pulse Ox O2 Delivery O2 Flow Rate FiO2 08/29/19 02:00 97.8 81 18 109/66 (80) 96 Room Air 08/27/19 17:40 0 I&O- Last 24 Hours up to 6 AM 08/29/19 06:00 Output Total 550 ml Balance -550 ml Laboratory Data Labs 24H Laboratory Tests 2 08/28/19 06:15: Nucleated Red Blood Cells % (auto) 0.0 CBC/BMP Laboratory Tests 08/28/19 06:15 Discharge Medications Scheduled Aspirin (Aspirin) 81 Mg Tab.chew, 81 MG PO DAILY for pain, (Reported) Bupropion HCl (Bupropion HCl) 100 Mg Tablet, 100 MG PO BID, (Reported) Bupropion HCl (Bupropion HCl) 100 Mg Tablet, 50 MG PO BID, (Reported) Cetirizine HCl (Zyrtec Allergy) 10 Mg Cap, 10 MG PO DAILY, (Reported) Ibuprofen (Ibuprofen) 800 Mg Tablet, 800 MG PO Q8H No.137/Iron/Folic Acd ( Vitamin Tablet) 1 Tab Tab, 1 TAB PO DAILY, (Reported) Scheduled PRN Oxycodone/Acetaminophen (Oxycodone-Acetaminophen 5-325) 1 Each Tablet, 1 TAB PO Q4H PRN for MILD/MODERATE PAIN (PS 1-7) Allergies Coded Allergies: No Known Allergies (Unverified , 08/28/17) JESSICA SPARKS MD. August 29, 2019 05:24
[2019-08-29] MEDS ORDERED: PERCOCET PO (05:30)
[2019-08-29] MEDS: PERCOCET 5MG/325MG TAB PO PRN ×2 (05:52→11:56)
[2019-08-29 06:00] VITALS: BP 118/75
[2019-08-29 07:20] VITALS: BP 118/75
[2019-08-29] MEDS: PRENATAL VITAMINS CHEWABLE TABLET PO SCH (09:50)
[2019-08-29] MEDS: buPROPion **SR TABLET** (ZYBAN) 150MG PO SCH (09:50)
== END 2019-08-29 12:30 | disposition home or self-care (01) | DRG 540 ==
LOC: M LDI 11:44 → M OBS 08-27 17:46
PROVIDERS: ADMIT Advanced Practice Midwife; ATTEND Obstetrics & Gynecology
PROC: 3E033VJ Introduction of Other Hormone into Peripheral Vein, Percutaneous Approach (ICD-10-PCS; 2019-08-26)
PROC: 30233N1 Transfusion of Nonautologous Red Blood Cells into Peripheral Vein, Percutaneous Approach (ICD-10-PCS; 2019-08-26)
PROC: 0UB70ZZ Excision of Bilateral Fallopian Tubes, Open Approach (ICD-10-PCS; 2019-08-27)
PROC: 10D00Z1 Extraction of Products of Conception, Low, Open Approach (ICD-10-PCS; principal; 2019-08-27 14:15)
DX: O11.4 Pre-existing hypertension with pre-eclampsia, complicating childbirth (principal); O10.02 Pre-existing essential hypertension complicating childbirth; O34.211 Maternal care for low transverse scar from previous cesarean delivery; O66.41 Failed attempted vaginal birth after previous cesarean delivery; O71.81 Laceration of uterus, not elsewhere classified; O62.0 Primary inadequate contractions; O72.1 Other immediate postpartum hemorrhage; Z37.0 Single live birth; Z30.2 Encounter for sterilization; Z3A.37 37 weeks gestation of pregnancy

== ENCOUNTER → 2022-04-07 | Outpatient (CLI) | payer OTHER ==
[~2022-04-07] MED LIST changes: +ASPI81CH33 PO; +BUPR-69 PO; +PERCOCET PO
[2022-04-07 17:55] LABS: HEMATOCRIT 43.7 % (36.0-47.0); HEMOGLOBIN 14.7 g/dl (12.0-15.5); MEAN CORPUSCULAR HEMOGLOBIN 28.5 pg (27.0-33.0); MEAN CORPUSCULAR HGB CONC 33.6 g/dl (32.0-36.5); MEAN CORPUSCULAR VOLUME 84.9 fl (80.0-96.0); PLATELET COUNT, AUTOMATED 301 10^3/uL (150-450); RED BLOOD COUNT 5.15 10^6/uL (4.00-5.40); WHITE BLOOD COUNT 11.9 10^3/uL (4.0-10.0)
[2022-04-07 18:02] LABS: FREE T4 1.01 NG/DL (0.89-1.76)
[2022-04-07 18:03] LABS: THYROID STIMULATING HORMONE 0.93 uIU/ML (0.55-4.78)
== END ==
LOC: M PLALAB 15:26
PROVIDERS: ATTEND Advanced Practice Midwife
DX: N92.0 Excessive and frequent menstruation with regular cycle (principal)

== ENCOUNTER → 2022-04-07 | Outpatient (REF) | payer OTHER | LOC: M PLALAB 15:44 | PROVIDERS: ATTEND Advanced Practice Midwife | DX: Z12.4 Encounter for screening for malignant neoplasm of cervix (principal) | CPT/HCPCS: 87624; G0123 ==

== ENCOUNTER → 2022-05-16 | Outpatient (CLI) | payer OTHER | LOC: M WHC 09:38 | PROVIDERS: ATTEND Advanced Practice Midwife | DX: N92.0 Excessive and frequent menstruation with regular cycle (principal); N83.201 Unspecified ovarian cyst, right side ==